=== PATIENT | male | born 1975 ===

== ENCOUNTER → 2024-10-17 | Outpatient (CLI) | payer SELFPAY ==
--- NOTE | 2024-10-17 13:38 | XR ---
EXAMINATION TYPE: XR chest 1V DATE OF EXAM: 10/17/2024 COMPARISON: NONE CLINICAL INDICATION: Male, 49 years old with history of Z11.1 ENCOUNTER FOR SCREENING FOR RESPIRATORY TUBE; preemployment exam TECHNIQUE: Single frontal view of the chest is obtained. FINDINGS: There is no focal air space opacity, pleural effusion, or pneumothorax seen. The cardiac silhouette size is within normal limits. The osseous structures are intact. IMPRESSION: No acute process. [facility], , 10/17/2024 1:35 PM
== END | disposition home or self-care (01) ==
LOC: RADXRMAIN 12:58
PROVIDERS: ATTEND Family Medicine
DX: Z11.1 Encounter for screening for respiratory tuberculosis (principal)
CPT/HCPCS: 71045